=== PATIENT | female | born 1975 | race Caucasian/White ===

== ENCOUNTER → 2016-09-24 | Outpatient (CLI) | payer OTHER ==
[~2016-09-24] MED LIST: ALBUTEROL2.5 MG/3 M INH; BACTRIM DS TAB1 EACH PO; BACTROBAN NASAL1 G1 TOP; CIPROFLOXACIN750 MG PO; COLACE 100MG C100 MG PO; IBUPROFEN600 MG PO; LEVAQUIN750 MG PO; MIRALAX PACK 171 PKT PO; MONTELUKAST SOD10 MG PO; NORCO 10-325 T1 EACH PO; NORCO 5-325 TA1 EACH PO; VENTOLIN HFA 66.7 GM INH; VITAMIN D250000 UNIT PO; ZOCOR 10 MG TAB10 MG PO
== END ==
LOC: MAMO 13:20
DX: Z12.31 Encounter for screening mammogram for malignant neoplasm of breast (principal)
CPT/HCPCS: G0202

== ENCOUNTER → 2016-09-25 | Outpatient (CLI) | payer OTHER | LOC: RT 12:56 | DX: J44.9 Chronic obstructive pulmonary disease, unspecified (principal); F17.210 Nicotine dependence, cigarettes, uncomplicated | CPT/HCPCS: 94010; 94729 ==

== ENCOUNTER → 2016-10-05 | Outpatient (CLI) | payer OTHER ==
[2016-10-05 08:42] LABS: HEMOGLOBIN 13.8 gm/dl (12.3-15.3); RED BLOOD COUNT 4.6 M/UL (4.00-5.10)
== END ==
LOC: OPSV2 07:59
PROVIDERS: Obstetrics & Gynecology
DX: Z01.812 Encounter for preprocedural laboratory examination (principal); Z01.818 Encounter for other preprocedural examination; D25.9 Leiomyoma of uterus, unspecified
CPT/HCPCS: 36415; 71020; 81001; 84703; 85025

== ENCOUNTER 2016-10-19 06:23 | Inpatient (IN) | payer OTHER ==
[~2016-10-19] VITALS: Ht 165.1 cm; Wt 91.6 kg
[~2016-10-19 06:23] MED LIST changes: -ALBUTEROL2.5 MG/3 M INH; -BACTRIM DS TAB1 EACH PO; -BACTROBAN NASAL1 G1 TOP; -CIPROFLOXACIN750 MG PO; -COLACE 100MG C100 MG PO; -IBUPROFEN600 MG PO; -MIRALAX PACK 171 PKT PO; -MONTELUKAST SOD10 MG PO; -NORCO 10-325 T1 EACH PO; -NORCO 5-325 TA1 EACH PO; -VENTOLIN HFA 66.7 GM INH; -VITAMIN D250000 UNIT PO; -ZOCOR 10 MG TAB10 MG PO
[2016-10-19] MEDS ORDERED: ZOCOR 10 MG TAB10 MG PO (07:15)
[2016-10-19] MEDS ORDERED: MONTELUKAST SOD10 MG PO (07:16)
[2016-10-19] MEDS ORDERED: VITAMIN D250000 UNIT PO (07:17)
[2016-10-19] MEDS ORDERED: MIRALAX PACK 171 PKT PO (07:17)
[2016-10-19] MEDS ORDERED: VENTOLIN HFA 66.7 GM INH (07:20)
[2016-10-20 06:16] LABS: HEMOGLOBIN 11.4 gm/dl (12.3-15.3)
[2016-10-20] MEDS ORDERED: IBUPROFEN600 MG PO (11:56)
[2016-10-20] MEDS ORDERED: COLACE 100MG C100 MG PO (11:57)
[2016-10-20] MEDS ORDERED: NORCO 5-325 TA1 EACH PO (11:57)
[2016-12-14] MEDS ORDERED: ALBUTEROL2.5 MG/3 M INH (07:15)
[2017-01-21] MEDS ORDERED: CIPROFLOXACIN750 MG PO (18:39)
[2017-01-25] MEDS ORDERED: BACTROBAN NASAL1 G1 TOP (16:11)
[2017-01-25] MEDS ORDERED: LEVAQUIN750 MG PO (16:11)
[2017-01-25] MEDS ORDERED: BACTRIM DS TAB1 EACH PO (16:12)
== END 2016-10-20 12:21 | disposition home or self-care (01) | DRG 742 ==
LOC: ZOBSOF 06:23 → MED SURG 4 13:50
PROVIDERS: ADMIT Obstetrics & Gynecology
PROC: 0UTC0ZZ Resection of Cervix, Open Approach (ICD-10-PCS; 2016-10-19)
PROC: 0UB70ZZ Excision of Bilateral Fallopian Tubes, Open Approach (ICD-10-PCS; 2016-10-19)
PROC: 0UQ10ZZ Repair Left Ovary, Open Approach (ICD-10-PCS; 2016-10-19)
PROC: 0UT90ZZ Resection of Uterus, Open Approach (ICD-10-PCS; principal; 2016-10-19 08:00)
DX: N92.1 Excessive and frequent menstruation with irregular cycle (principal); N99.61 Intraoperative hemorrhage and hematoma of a genitourinary system organ or structure complicating a genitourinary system procedure; D25.9 Leiomyoma of uterus, unspecified; I10 Essential (primary) hypertension; Z82.49 Family history of ischemic heart disease and other diseases of the circulatory system; Z83.3 Family history of diabetes mellitus; Z80.0 Family history of malignant neoplasm of digestive organs; F17.210 Nicotine dependence, cigarettes, uncomplicated; N95.9 Unspecified menopausal and perimenopausal disorder
CPT/HCPCS: 36415; 84703; 85014; 85018; J0690; J1100; J1885; J2250; J2270; J2405; J2710; J2765; J3010; J7120

== ENCOUNTER 2016-11-07 07:51 | Emergency (ER) | payer OTHER ==
[~2016-11-07 07:51] MED LIST changes: +COLACE 100MG C100 MG PO; +IBUPROFEN600 MG PO; +MIRALAX PACK 171 PKT PO; +MONTELUKAST SOD10 MG PO; +NORCO 5-325 TA1 EACH PO; +VENTOLIN HFA 66.7 GM INH; +VITAMIN D250000 UNIT PO; +ZOCOR 10 MG TAB10 MG PO
[2016-11-07 09:02] LABS: HEMOGLOBIN 12.3 gm/dl (12.3-15.3); RED BLOOD COUNT 4.2 M/UL (4.00-5.10)
[2016-11-07 09:19] LABS: BUN/CREATININE RATIO 10 (0-10)
[2016-12-14] MEDS ORDERED: ALBUTEROL2.5 MG/3 M INH (07:15)
[2017-01-21] MEDS ORDERED: CIPROFLOXACIN750 MG PO (18:39)
[2017-01-25] MEDS ORDERED: LEVAQUIN750 MG PO (16:11)
[2017-01-25] MEDS ORDERED: BACTROBAN NASAL1 G1 TOP (16:11)
[2017-01-25] MEDS ORDERED: BACTRIM DS TAB1 EACH PO (16:12)
== END 2016-11-07 14:00 | disposition home or self-care (01) ==
LOC: ER1 07:51
PROVIDERS: Emergency Medicine
DX: L03.311 Cellulitis of abdominal wall (principal)
CPT/HCPCS: 36415; 80053; 83690; 85025; 87040; 96361; 96374; 96375; 99284; J2270; J2405; J7030; J7050; Q9962

== ENCOUNTER 2016-11-23 17:36 | Emergency (ER) | payer OTHER ==
[2016-12-14] MEDS ORDERED: ALBUTEROL2.5 MG/3 M INH (07:15)
[2017-01-21] MEDS ORDERED: CIPROFLOXACIN750 MG PO (18:39)
[2017-01-25] MEDS ORDERED: LEVAQUIN750 MG PO (16:11)
[2017-01-25] MEDS ORDERED: BACTROBAN NASAL1 G1 TOP (16:11)
[2017-01-25] MEDS ORDERED: BACTRIM DS TAB1 EACH PO (16:12)
== END 2016-11-24 00:30 | disposition left against medical advice (07) ==
LOC: ER1 17:36
DX: Z53.21 Procedure and treatment not carried out due to patient leaving prior to being seen by health care provider (principal)

== ENCOUNTER 2016-12-14 12:18 | Inpatient (IN) | payer OTHER ==
[~2016-12-14] VITALS: Ht 165.1 cm; Wt 91.6 kg
[~2016-12-14 12:18] MED LIST changes: +ALBUTEROL2.5 MG/3 M INH
[2016-12-14 13:57] LABS: HEMOGLOBIN 11.9 gm/dl (12.3-15.3); RED BLOOD COUNT 4.11 M/UL (4.00-5.10); WHITE BLOOD COUNT 15.3 K/UL (4.5-11.0)
[2016-12-15 06:33] LABS: HEMOGLOBIN 12.3 gm/dl (12.3-15.3); RED BLOOD COUNT 4.26 M/UL (4.00-5.10); WHITE BLOOD COUNT 12.5 K/UL (4.5-11.0)
[2016-12-15 06:56] LABS: BUN/CREATININE RATIO 13 (0-10)
[2016-12-16 05:13] LABS: BUN/CREATININE RATIO 13 (0-10); HEMOGLOBIN 12.4 gm/dl (12.3-15.3); RED BLOOD COUNT 4.33 M/UL (4.00-5.10); WHITE BLOOD COUNT 13.6 K/UL (4.5-11.0)
[2016-12-17 05:22] LABS: BUN/CREATININE RATIO 12 (0-10)
[2016-12-18 05:01] LABS: HEMOGLOBIN 12.1 gm/dl (12.3-15.3); RED BLOOD COUNT 4.26 M/UL (4.00-5.10)
[2016-12-18 05:04] LABS: WHITE BLOOD COUNT 9.8 K/UL (4.5-11.0)
[2016-12-18] MEDS ORDERED: NORCO 10-325 T1 EACH PO (15:56)
[2017-01-21] MEDS ORDERED: CIPROFLOXACIN750 MG PO (18:39)
[2017-01-25] MEDS ORDERED: BACTROBAN NASAL1 G1 TOP (16:11)
[2017-01-25] MEDS ORDERED: LEVAQUIN750 MG PO (16:11)
[2017-01-25] MEDS ORDERED: BACTRIM DS TAB1 EACH PO (16:12)
== END 2016-12-18 16:20 | disposition home or self-care (01) | DRG 863 ==
LOC: M/S 12:18
PROVIDERS: Emergency Medicine; Internal Medicine Infectious Disease; ADMIT Obstetrics & Gynecology
DX: T81.4XXA Infection following a procedure, initial encounter (principal); L03.311 Cellulitis of abdominal wall; B99.9 Unspecified infectious disease; Y83.8 Other surgical procedures as the cause of abnormal reaction of the patient, or of later complication, without mention of misadventure at the time of the procedure; J44.9 Chronic obstructive pulmonary disease, unspecified; E78.5 Hyperlipidemia, unspecified; F17.210 Nicotine dependence, cigarettes, uncomplicated; Z90.710 Acquired absence of both cervix and uterus; Z82.49 Family history of ischemic heart disease and other diseases of the circulatory system
CPT/HCPCS: 36415; 80048; 80053; 80170; 85025; 86140; 94640; 94664; G0379; J1580; J7030; J7050; Q9962

== ENCOUNTER → 2016-12-19 | Outpatient (CLI) | payer OTHER ==
[~2016-12-19] VITALS: Ht 165.1 cm; Wt 90.7 kg
[~2016-12-19] MED LIST changes: +BACTRIM DS TAB1 EACH PO; +BACTROBAN NASAL1 G1 TOP; +CIPROFLOXACIN750 MG PO; +NORCO 10-325 T1 EACH PO
== END ==
LOC: OPSV 09:52
DX: T81.4XXA Infection following a procedure, initial encounter (principal); R78.9 Finding of unspecified substance, not normally found in blood
CPT/HCPCS: 96365; 96366; 96375; 96376; J1200; J2407; J7070; Q0163

== ENCOUNTER 2020-09-26 11:00 | Emergency (ER) | payer OTHER ==
[2020-09-26 12:32] LABS: HEMOGLOBIN 13.5 gm/dl (12.3-15.3); RED BLOOD COUNT 4.5 M/UL (4.00-5.10); WHITE BLOOD COUNT 12.7 K/UL (4.5-11.0)
[2020-09-26 12:54] LABS: BUN/CREATININE RATIO 12 (0-10)
[2020-09-26] MEDS ORDERED: PEPCID20 MG PO (16:18)
[2020-09-26] MEDS ORDERED: BENTYL 10MG CAP10 MG PO (16:18)
[2020-09-26] MEDS ORDERED: IBU800 MG PO (16:18)
[2020-09-26] MEDS ORDERED: ZOFRAN ODT 4 MG4 MG PO (16:18)
== END 2020-09-26 16:35 | disposition home or self-care (01) ==
LOC: ER1 11:00
PROVIDERS: Nurse Practitioner
DX: K85.90 Acute pancreatitis without necrosis or infection, unspecified (principal); N83.202 Unspecified ovarian cyst, left side; R79.89 Other specified abnormal findings of blood chemistry
CPT/HCPCS: 71045; 80053; 81001; 82550; 82553; 83605; 83690; 84484; 85025; 96365; 96372; 96375; 99284; J0500; J1885; J2405; Q9967

== ENCOUNTER 2021-03-17 07:47 | Emergency (ER) | payer OTHER ==
[~2021-03-17 07:47] MED LIST changes: +BENTYL 10MG CAP10 MG PO; +IBU800 MG PO; +PEPCID20 MG PO; +ZOFRAN ODT 4 MG4 MG PO
[2021-03-17] MEDS ORDERED: IBUPROFEN800 MG PO (09:33)
[2021-03-17] MEDS ORDERED: CYCLOBENZAPRINE10 MG PO (09:33)
== END 2021-03-17 12:27 | disposition home or self-care (01) ==
LOC: ER1 07:47
DX: S39.012A Strain of muscle, fascia and tendon of lower back, initial encounter (principal); S30.811A Abrasion of abdominal wall, initial encounter; Z90.49 Acquired absence of other specified parts of digestive tract; Z90.710 Acquired absence of both cervix and uterus; F17.210 Nicotine dependence, cigarettes, uncomplicated; Z88.8 Allergy status to other drugs, medicaments and biological substances; Z23 Encounter for immunization; V49.40XA Driver injured in collision with unspecified motor vehicles in traffic accident, initial encounter; Y92.410 Unspecified street and highway as the place of occurrence of the external cause
CPT/HCPCS: 72131; 73590; 90471; 90715; 99284

== ENCOUNTER 2021-04-16 10:12 | Emergency (ER) | payer OTHER ==
[~2021-04-16 10:12] MED LIST changes: +CYCLOBENZAPRINE10 MG PO; +IBUPROFEN800 MG PO
[2021-04-16 11:34] LABS: HEMOGLOBIN 14.2 gm/dl (12.3-15.3); RED BLOOD COUNT 4.56 M/UL (4.00-5.10); WHITE BLOOD COUNT 13.2 K/UL (4.5-11.0)
[2021-04-16 11:59] LABS: BUN/CREATININE RATIO 10 (0-10)
== END 2021-04-16 15:50 | disposition home or self-care (01) ==
LOC: ER1 10:12
DX: R10.11 Right upper quadrant pain (principal); R10.31 Right lower quadrant pain; E78.5 Hyperlipidemia, unspecified; I10 Essential (primary) hypertension; F17.200 Nicotine dependence, unspecified, uncomplicated; Z88.1 Allergy status to other antibiotic agents; Z90.49 Acquired absence of other specified parts of digestive tract; Z90.710 Acquired absence of both cervix and uterus; Z87.442 Personal history of urinary calculi
CPT/HCPCS: 80053; 81001; 83690; 85025; 96374; 96375; 99284; J1885; J2405; Q9967